=== PATIENT | female | born 1970 | race Caucasian/White ===

== ENCOUNTER 2017-04-16 22:48 | Emergency (ER) | payer OTHER, SELFPAY | END 2017-04-16 23:57 | disposition home or self-care (01) | LOC: SCSER 22:48 | DX: J06.9 Acute upper respiratory infection, unspecified (principal) | CPT/HCPCS: 99283 ==

== ENCOUNTER 2020-03-19 11:09 | Emergency (ER) | payer SELFPAY ==
--- NOTE | 2020-03-19 11:58 | RAD ---
EXAM: Single view of the chest HISTORY: Shortness of breath and chest tightness COMPARISON: 04/01/2008 FINDINGS: Single view of the chest shows a normal sized cardiomediastinal silhouette. Hyperexpansion of the lungs may be secondary to COPD. There is no evidence of consolidation, mass, or pleural effusion. No acute osseous abnormality. IMPRESSION: No evidence of acute cardiopulmonary disease
[2020-03-19 12:11] LABS: #Lymphocytes 1.6 thou/uL (1.20-3.40); #Monocytes 0.5 thou/uL (0.11-0.59); #Neutrophils 3.8 thou/uL (1.40-6.50); %Basophils 0.7 % (0.0-1.0); %Eosinophils 0.7 % (0.0-10.0); %Monocytes 8.3 % (0.0-10.0); %Neutrophils 63.3 % (42.0-75.0); Hemoglobin 14.3 g/dL (12.0-16.0); Mean Corpuscular HGB CONC 34.5 g/dL (32.0-36.0); Mean Corpuscular Hemoglobin 31.7 pg (27.0-31.0); Mean Corpuscular Volume 91.9 fL (78.0-98.0); Mean Platelet Volume 6.4 fL (7.4-10.4); Platelet Count 297 thou/uL (130-400); RBC Distribution Width 11.1 % (11.5-14.5); Red Blood Cell (RBC) Count 4.51 mill/uL (4.20-5.40)
[2020-03-19] MEDS ORDERED: Aspirin Chewable 81 MG TAB ONE (12:30)
[2020-03-19] MEDS ORDERED: Acetaminophen 500 MG TAB ONE (12:30)
[2020-03-19] MEDS ORDERED: Dexamethasone 10 MG/ML VIAL ONE (12:32)
[2020-03-19 12:33] LABS: ALT (SGPT) 68 U/L (8-55); AST (SGOT) 45 U/L (5-34); Albumin 4.4 g/dL (3.5-5.0); Alkaline Phosphatase 77 U/L (40-110); Anion Gap 15 mmol/L (10-20); BUN (Urea Nitrogen) 26 mg/dL (7.0-18.7); Bilirubin, Total 0.7 mg/dL (0.2-1.2); Calc. Creatinine Clearance 0 mL/min (70-130); Calcium 9.4 mg/dL (7.8-10.44); Carbon Dioxide 25 mmol/L (22-29); Chloride 105 mmol/L (98-107); Globulin 3.3 g/dL (2.4-3.5); Glucose 116 mg/dL (70-105); Potassium 3.8 mmol/L (3.5-5.1); Protein, Total 7.7 g/dL (6.0-8.3); Sodium 141 mmol/L (136-145)
[2020-03-19 18:09] LABS: SARS-CoV-2 MS2 Positive; SARS-CoV-2 N Gene Negative; SARS-CoV-2 S Gene Negative; SARS-CoV-2 by NAA Not Detected (NotDetected); SARS-CoV-2 orf1ab Negative
== END 2020-03-19 14:41 | disposition home or self-care (01) ==
LOC: ERS 11:09
DX: J06.9 Acute upper respiratory infection, unspecified (principal); R00.0 Tachycardia, unspecified; Z20.828 Contact with and (suspected) exposure to other viral communicable diseases
CPT/HCPCS: 36415; 71045; 80053; 83605; 84484; 85025; 87635; 93005; 94760; 96374; J1100; U0003